=== PATIENT | female | born 1935 | race Caucasian/White ===

== ENCOUNTER 2021-01-11 11:51 | Inpatient (IN) | payer OTHER ==
[2021-01-11] MEDS ORDERED: ACETAMINOPHEN 500 MG TABLET (FP) PO ONE (13:09)
[2021-01-11] MEDS ORDERED: ACETAMINOPHEN INJECTION 100 ML IVPB ONE (13:19)
[2021-01-11] MEDS ORDERED: ACETAMINOPHEN 1000 MG/100 ML VIAL (NON FORMULARY) IVPB ONE (13:23)
[2021-01-11 13:49] LABS: BASO % 0.1 % (0-2.0); EOS % 0.3 % (0-4.5); HEMATOCRIT 41.1 % (32.4-45.2); LYMPH % 5.8 % (8-40); MCH 30.7 pg (25.7-33.7); MCHC 34.1 g/dl (32.0-36.0); MEAN CELL VOLUME 89.8 fl (80-96); MEAN PLT VOLUME 8.8 fl (7.5-11.1); MONO % 5.3 % (3.8-10.2); NEUT % 88.5 % (42.8-82.8); PLATELET COUNT 235 10^3/uL (134-434); RBC 4.58 M/mm3 (3.60-5.2); RDW 13.3 % (11.6-15.6); WHITE BLOOD COUNT 13.2 K/mm3 (4.0-10.0)
[2021-01-11 14:05] LABS: CHLORIDE 105 mmol/L (98-107); SODIUM 139 mmol/L (136-145)
[2021-01-11 14:08] LABS: ALBUMIN 3.8 g/dl (3.4-5.0); ANION GAP 9 MMOL/L (8-16); BLOOD UREA NITROGEN 12.4 mg/dL (7-18); CALCIUM 8.8 mg/dL (8.5-10.1); CO2 25 mmol/L (21-32); LIPASE 121 U/L (73-393)
[2021-01-11 14:09] LABS: GLUCOSE,RANDOM 176 mg/dL (74-106)
[2021-01-11 14:11] LABS: CREATININE 1.1 mg/dL (0.55-1.3); SGOT/AST 16 U/L (15-37); SGPT/ALT 22 U/L (13-61)
[2021-01-11 14:12] LABS: BILIRUBIN,TOTAL 0.5 mg/dL (0.2-1); LACTIC ACID 2.2 mmol/L (0.4-2.0); TOT PROT 7.3 g/dl (6.4-8.2)
[2021-01-11 14:14] LABS: ALK PHOS 98 U/L (45-117)
[2021-01-11] MEDS ORDERED: LACTATED RINGERS SOLUTION 1000 ML INFUS.BAG IV ONE (14:17)
[2021-01-11] MEDS ORDERED: ACETAMINOPHEN 325 MG TABLET (FP) PO PRN (17:52)
[2021-01-11] MEDS ORDERED: PANTOPRAZOLE 40 MG TABLET ONE (19:27)
[2021-01-11] MEDS: PANTOPRAZOLE 40 MG TABLET PO SCH (20:00)
[2021-01-11] MEDS: D5-1/2NS+10 MEQ KCL - 10 MEQ/1,000 ML INFUS.BAG IV SCH (21:45)
[2021-01-11 21:56] LABS: URINE APPEARANCE CLEAR; URINE BILIRUBIN NEGATIVE (NEGATIVE); URINE COLOR YELLOW; URINE GLUCOSE (UA) TRACE (NEGATIVE); URINE KETONE 1+ (NEGATIVE); URINE LEUK ESTERASE NEGATIVE (NEGATIVE); URINE NITRITE NEGATIVE (NEGATIVE); URINE PROTEIN NEGATIVE (NEGATIVE); URINE UROBILINOGEN 0.2 mg/dL (0.2-1.0)
[2021-01-12 08:11] LABS: BASO % 0.2 % (0-2.0); EOS % 0.2 % (0-4.5); HEMATOCRIT 39.3 % (32.4-45.2); LYMPH % 8.7 % (8-40); MCH 31.4 pg (25.7-33.7); MCHC 35.6 g/dl (32.0-36.0); MEAN CELL VOLUME 88.3 fl (80-96); MEAN PLT VOLUME 8.9 fl (7.5-11.1); MONO % 4.7 % (3.8-10.2); NEUT % 86.2 % (42.8-82.8); PLATELET COUNT 252 10^3/uL (134-434); RBC 4.46 M/mm3 (3.60-5.2); WHITE BLOOD COUNT 14.7 K/mm3 (4.0-10.0)
[2021-01-12 08:19] LABS: BLOOD UREA NITROGEN 6.8 mg/dL (7-18); CALCIUM 8.6 mg/dL (8.5-10.1)
[2021-01-12 08:23] LABS: CREATININE 0.7 mg/dL (0.55-1.3)
[2021-01-12] MEDS: ENOXAPARIN NA (PORCINE) 40 MG/0.4 ML DISP.SYRIN SQ SCH (10:37)
[2021-01-12] MEDS: PANTOPRAZOLE 40 MG TABLET PO SCH (10:37)
[2021-01-12] MEDS: KCL 10 MEQ IVPB 10 MEQ/100 ML INFUS.BAG IVPB SCH ×2 (10:37→14:01)
[2021-01-12] MEDS: POTASSIUM CHLORIDE TABS 20 MEQ TABLET.ER (FP) PO SCH ×2 (14:06→22:43)
[2021-01-12] MEDS: D5-1/2NS+10 MEQ KCL - 10 MEQ/1,000 ML INFUS.BAG IV SCH (18:45)
[2021-01-13] MEDS: D5-1/2NS+10 MEQ KCL - 10 MEQ/1,000 ML INFUS.BAG IV SCH (05:50)
[2021-01-13 09:26] LABS: BASO % 0.4 % (0-2.0); EOS % 0.6 % (0-4.5); HEMATOCRIT 37.4 % (32.4-45.2); HEMOGLOBIN 12.9 GM/dL (10.7-15.3); LYMPH % 12.2 % (8-40); MCH 30.5 pg (25.7-33.7); MCHC 34.4 g/dl (32.0-36.0); MEAN CELL VOLUME 88.7 fl (80-96); MONO % 4.7 % (3.8-10.2); NEUT % 82.1 % (42.8-82.8); PLATELET COUNT 219 10^3/uL (134-434); RBC 4.21 M/mm3 (3.60-5.2); RDW 13.3 % (11.6-15.6); WHITE BLOOD COUNT 12.7 K/mm3 (4.0-10.0)
[2021-01-13 09:47] LABS: BLOOD UREA NITROGEN 9.2 mg/dL (7-18); CALCIUM 8.3 mg/dL (8.5-10.1)
[2021-01-13 09:51] LABS: CREATININE 0.7 mg/dL (0.55-1.3)
[2021-01-13] MEDS: ENOXAPARIN NA (PORCINE) 40 MG/0.4 ML DISP.SYRIN SQ SCH (09:51)
[2021-01-13] MEDS: PANTOPRAZOLE 40 MG TABLET PO SCH (13:53)
[2021-01-13] MEDS: POTASSIUM CHLORIDE TABS 20 MEQ TABLET.ER (FP) PO SCH ×2 (13:53→21:49)
[2021-01-14 07:47] LABS: HEMATOCRIT 36.3 % (32.4-45.2); HEMOGLOBIN 12.5 GM/dL (10.7-15.3); MEAN CELL VOLUME 89.7 fl (80-96); RBC 4.04 M/mm3 (3.60-5.2); WHITE BLOOD COUNT 7.7 K/mm3 (4.0-10.0)
[2021-01-14 07:48] LABS: BASO % 0.6 % (0-2.0); EOS % 1.8 % (0-4.5); LYMPH % 19.5 % (8-40); MCH 30.9 pg (25.7-33.7); MCHC 34.4 g/dl (32.0-36.0); MONO % 6.8 % (3.8-10.2); NEUT % 71.3 % (42.8-82.8); PLATELET COUNT 210 10^3/uL (134-434); RDW 13.4 % (11.6-15.6)
[2021-01-14 08:06] LABS: BLOOD UREA NITROGEN 9.8 mg/dL (7-18); CREATININE 0.8 mg/dL (0.55-1.3)
[2021-01-14 08:07] LABS: CALCIUM 8.3 mg/dL (8.5-10.1)
[2021-01-14] MEDS: PANTOPRAZOLE 40 MG TABLET PO SCH (10:51)
[2021-01-14] MEDS: ENOXAPARIN NA (PORCINE) 40 MG/0.4 ML DISP.SYRIN SQ SCH (10:51)
[2021-01-14] MEDS ORDERED: ACETAMINOPHEN 325 MG TABLET (FP) PO PRN (14:47)
[2021-01-14] MEDS ORDERED: CEFTRIAXONE 1 GM in DEXTROSE 5%-WATER - 50 ML IVPB SCH (17:30)
[2021-01-14] MEDS ORDERED: cefTRIAXone SODIUM 1 GM VIAL ONE (21:02)
[2021-01-14] MEDS ORDERED: DEXTROSE 5%-WATER - 50 ML IVPB ONE (21:03)
[2021-01-14] MEDS: CEFTRIAXONE 1 GM in DEXTROSE 5%-WATER - 50 ML IVPB SCH (21:12)
[2021-01-15 08:23] LABS: BASO % 0.5 % (0-2.0); EOS % 2.2 % (0-4.5); HEMATOCRIT 39.1 % (32.4-45.2); HEMOGLOBIN 13.5 GM/dL (10.7-15.3); LYMPH % 15.6 % (8-40); MCHC 34.5 g/dl (32.0-36.0); MEAN CELL VOLUME 89.9 fl (80-96); MEAN PLT VOLUME 8.8 fl (7.5-11.1); MONO % 6.6 % (3.8-10.2); NEUT % 75.1 % (42.8-82.8); PLATELET COUNT 243 10^3/uL (134-434); RBC 4.35 M/mm3 (3.60-5.2); RDW 13.1 % (11.6-15.6); WHITE BLOOD COUNT 6.4 K/mm3 (4.0-10.0)
[2021-01-15] MEDS ORDERED: cefTRIAXone SODIUM 1 GM VIAL ONE (09:26)
[2021-01-15] MEDS ORDERED: DEXTROSE 5%-WATER - 50 ML IVPB ONE (09:26)
[2021-01-15] MEDS: ENOXAPARIN NA (PORCINE) 40 MG/0.4 ML DISP.SYRIN SQ SCH (09:31)
[2021-01-15] MEDS: PANTOPRAZOLE 40 MG TABLET PO SCH (09:31)
[2021-01-15] MEDS: CEFTRIAXONE 1 GM in DEXTROSE 5%-WATER - 50 ML IVPB SCH (09:32)
[2021-01-16 09:46] LABS: BASO % 0.8 % (0-2.0); EOS % 1.7 % (0-4.5); HEMATOCRIT 40.6 % (32.4-45.2); HEMOGLOBIN 14.1 GM/dL (10.7-15.3); LYMPH % 16.1 % (8-40); MCH 31.1 pg (25.7-33.7); MCHC 34.7 g/dl (32.0-36.0); MEAN CELL VOLUME 89.6 fl (80-96); MEAN PLT VOLUME 8.6 fl (7.5-11.1); MONO % 6.4 % (3.8-10.2); PLATELET COUNT 293 10^3/uL (134-434); RBC 4.53 M/mm3 (3.60-5.2); RDW 13.1 % (11.6-15.6); WHITE BLOOD COUNT 5.6 K/mm3 (4.0-10.0)
[2021-01-16] MEDS ORDERED: cefTRIAXone SODIUM 1 GM VIAL ONE (10:29)
[2021-01-16] MEDS: ENOXAPARIN NA (PORCINE) 40 MG/0.4 ML DISP.SYRIN SQ SCH (11:05)
[2021-01-16] MEDS: PANTOPRAZOLE 40 MG TABLET PO SCH (11:05)
[2021-01-16] MEDS: CEFTRIAXONE 1 GM in DEXTROSE 5%-WATER - 50 ML IVPB SCH (11:06)
[2021-01-16] MEDS ORDERED: LOSARTAN POTASSIUM 25 MG TABLET PO PRN (11:52)
[2021-01-17] MEDS ORDERED: MINERAL OIL ENEMA 133 ML ENEMA PR ONE (08:48)
[2021-01-17] MEDS ORDERED: cefTRIAXone SODIUM 1 GM VIAL ONE (09:24)
[2021-01-17] MEDS ORDERED: DEXTROSE 5%-WATER - 50 ML IVPB ONE (09:24)
[2021-01-17] MEDS: POLYETHYLENE GLYCOL (HEALTHYLAX) 3350 17 GM PACKET PO SCH ×3 (09:39→21:40)
[2021-01-17] MEDS: ENOXAPARIN NA (PORCINE) 40 MG/0.4 ML DISP.SYRIN SQ SCH (09:40)
[2021-01-17] MEDS: PANTOPRAZOLE 40 MG TABLET PO SCH (09:40)
[2021-01-17] MEDS: CEFTRIAXONE 1 GM in DEXTROSE 5%-WATER - 50 ML IVPB SCH (09:40)
[2021-01-17] MEDS ORDERED: POLYETHYLENE GLYCOL (HEALTHYLAX) 3350 17 GM PACKET PO SCH (10:00)
[2021-01-17] MEDS: DOCUSATE SODIUM 100 MG CAPSULE (FP) PO SCH ×2 (13:54→21:40)
[2021-01-18] MEDS: DOCUSATE SODIUM 100 MG CAPSULE (FP) PO SCH ×2 (06:14→14:48)
[2021-01-18] MEDS ORDERED: POLYETHYLENE GLYCOL (HEALTHYLAX) 3350 17 GM PACKET PO SCH (10:00)
[2021-01-18] MEDS ORDERED: cefTRIAXone SODIUM 1 GM VIAL ONE (10:04)
[2021-01-18] MEDS ORDERED: DEXTROSE 5%-WATER - 50 ML IVPB ONE (10:04)
[2021-01-18] MEDS: CEFTRIAXONE 1 GM in DEXTROSE 5%-WATER - 50 ML IVPB SCH (10:06)
[2021-01-18] MEDS: ENOXAPARIN NA (PORCINE) 40 MG/0.4 ML DISP.SYRIN SQ SCH (10:07)
[2021-01-18] MEDS: PANTOPRAZOLE 40 MG TABLET PO SCH (10:07)
[2021-01-18 11:53] VITALS: BMI 23.0
[2021-01-18] MEDS ORDERED: metroNIDAZOLE 250 MG TABLET PO SCH (14:00)
[2021-01-18 14:57] VITALS: BP 139/73; PULSE 84; TEMP 98.3
[2021-01-18] MEDS ORDERED: CEFUROXIME AXETIL 500 MG TABLET PO SCH (22:00)
[2021-01-19] MEDS ORDERED: MULTIVITAMINS (DAILY MVI) TABLET (FP) PO SCH (10:00)
[2021-01-19] MEDS ORDERED: LOSARTAN POTASSIUM 25 MG TABLET PO SCH (10:00)
== END 2021-01-18 18:07 | disposition home or self-care (01) | DRG 392 ==
LOC: JER 11:51 → JERBED 16:30 → OBSVTOIN 17:53 → J4W 01-12 01:56 → J6S 01-14 13:46
PROVIDERS: ADMIT Internal Medicine; ATTEND Internal Medicine
DX: K52.9 Noninfective gastroenteritis and colitis, unspecified (principal); E87.2 Acidosis; F03.90 Unspecified dementia, unspecified severity, without behavioral disturbance, psychotic disturbance, mood disturbance, and anxiety; E11.9 Type 2 diabetes mellitus without complications; I10 Essential (primary) hypertension; I25.10 Atherosclerotic heart disease of native coronary artery without angina pectoris; I25.2 Old myocardial infarction; R00.2 Palpitations; R26.81 Unsteadiness on feet; R10.30 Lower abdominal pain, unspecified; D72.829 Elevated white blood cell count, unspecified; R55 Syncope and collapse; F41.9 Anxiety disorder, unspecified; K57.30 Diverticulosis of large intestine without perforation or abscess without bleeding; M17.0 Bilateral primary osteoarthritis of knee; N28.1 Cyst of kidney, acquired; K59.00 Constipation, unspecified
CPT/HCPCS: 36415; 70450-TC; 71045-TC-FY; 71250-TC; 74177-TC; 80048; 80053; 81003; 83605; 83690; 84443; 84484; 85025; 85379; 85651; 86140; 87040; 87086; 87324; 87449; 93005; 93010; 93306-TC; 93880-TC; 93970-TC; 97116-GP; 97161-GP; 99285-25; C9803; G0378; J0131; Q9967; U0003; U0005

== ENCOUNTER 2021-08-15 20:09 | Inpatient (IN) | payer OTHER ==
[2021-08-15] MEDS ORDERED: ACETAMINOPHEN 1000 MG/100 ML BAG IVPB ONE (20:43)
[2021-08-15] MEDS ORDERED: METOCLOPRAMIDE HCL INJECTION 10 MG/2 ML VIAL IVPUSH ONE (20:43)
[2021-08-15] MEDS ORDERED: SODIUM CHLORIDE 0.9% 500 ML INFUS.BAG IV ONE (20:50)
[2021-08-15] MEDS ORDERED: METOCLOPRAMIDE HCL INJECTION 10 MG/2 ML VIAL ONE (20:51)
[2021-08-15] MEDS ORDERED: ACETAMINOPHEN INJECTION 100 ML IVPB ONE (20:51)
[2021-08-15 22:01] LABS: BASO % 0.4 % (0-2.0); EOS % 0.2 % (0-4.5); HEMATOCRIT 40.1 % (32.4-45.2); HEMOGLOBIN 13.6 GM/dL (10.7-15.3); LYMPH % 7.3 % (8-40); MEAN CELL VOLUME 88.3 fl (80-96); MEAN PLT VOLUME 9.3 fl (7.5-11.1); MONO % 2.5 % (3.8-10.2); NEUT % 89.6 % (42.8-82.8); PLATELET COUNT 254 10^3/uL (134-434); RBC 4.54 M/mm3 (3.60-5.2); RDW 12.9 % (11.6-15.6); WHITE BLOOD COUNT 9.5 K/mm3 (4.0-10.0)
[2021-08-15 22:20] LABS: CALCIUM 9.4 mg/dL (8.5-10.1)
[2021-08-15 22:21] LABS: BLOOD UREA NITROGEN 11.3 mg/dL (7-18); MAGNESIUM 2.2 mg/dL (1.8-2.4)
[2021-08-15 22:24] LABS: CREATININE 0.6 mg/dL (0.55-1.3)
[2021-08-15 22:25] LABS: TOT PROT 7.3 g/dl (6.4-8.2)
[2021-08-15] MEDS ORDERED: levETIRAcetam 500 MG/5 ML INJECTION VIAL IVPB ONE ×2 (22:25→22:43)
[2021-08-15 22:26] LABS: BILIRUBIN,TOTAL 0.5 mg/dL (0.2-1)
[2021-08-15] MEDS ORDERED: NICARDIPINE 25 MG in DEXTROSE 5%-WATER - 240 ML IVPB SCH (23:45)
[2021-08-16 00:10] LABS: INR 1.07 (0.83-1.09); PROTHROMBIN TIME (PATIENT) 12.3 SEC (9.7-13.0)
[2021-08-16 00:13] LABS: ACTIVATED PTT 29.7 SECONDS (25.2-36.5)
[2021-08-16] MEDS: INSULIN SLIDING SCALE (NOVOLOG) 1 VIAL SQ SCH ×4 (06:17→21:14)
[2021-08-16 07:25] LABS: BASO % 0.4 % (0-2.0); EOS % 1.3 % (0-4.5); HEMATOCRIT 37.1 % (32.4-45.2); HEMOGLOBIN 12.7 GM/dL (10.7-15.3); LYMPH % 21.9 % (8-40); MCH 30.2 pg (25.7-33.7); MCHC 34.2 g/dl (32.0-36.0); MEAN CELL VOLUME 88.5 fl (80-96); MEAN PLT VOLUME 8.8 fl (7.5-11.1); NEUT % 70.4 % (42.8-82.8); PLATELET COUNT 243 10^3/uL (134-434); RBC 4.19 M/mm3 (3.60-5.2); RDW 12.9 % (11.6-15.6)
[2021-08-16 07:40] LABS: BLOOD UREA NITROGEN 10.8 mg/dL (7-18); MAGNESIUM 2.1 mg/dL (1.8-2.4)
[2021-08-16 07:43] LABS: CREATININE 0.7 mg/dL (0.55-1.3); PHOSPHOROUS 4.1 mg/dL (2.5-4.9)
[2021-08-16] MEDS ORDERED: FLU VACC QS2021-22(6MOS UP)/PF 60 MCG/0.5 ML SYRINGE IM ONE (09:00)
[2021-08-16] MEDS: HYDROCHLOROTHIAZIDE 12.5 MG CAPSULE (FP) PO SCH (09:46)
[2021-08-16] MEDS: MUPIROCIN 2% TOPICAL OINTMENT FOR DECOLONIZATION NS SCH ×2 (09:48→21:29)
[2021-08-16] MEDS ORDERED: levETIRAcetam 500 MG/5 ML INJECTION VIAL IVPB SCH (10:00)
[2021-08-16] MEDS: VALSARTAN 80 MG TABLET PO SCH (10:22)
[2021-08-16] MEDS ORDERED: TRIMETHOBENZAMIDE HCL 300 MG CAPSULE PO ONE (14:09)
[2021-08-16] MEDS ORDERED: ACETAMINOPHEN 325 MG TABLET (FP) PO ONE (21:14)
[2021-08-16] MEDS: levETIRAcetam 250 MG TABLET PO SCH (21:27)
[2021-08-16] MEDS ORDERED: CHLORHEXIDINE GLUCONATE 4% CLEANSER FOR DECOLONIZATION TP SCH (22:00)
[2021-08-17] MEDS: INSULIN SLIDING SCALE (NOVOLOG) 1 VIAL SQ SCH ×4 (07:22→22:04)
[2021-08-17] MEDS: levETIRAcetam 250 MG TABLET PO SCH ×2 (09:12→22:22)
[2021-08-17] MEDS: VALSARTAN 80 MG TABLET PO SCH (09:12)
[2021-08-17] MEDS: HYDROCHLOROTHIAZIDE 12.5 MG CAPSULE (FP) PO SCH (09:12)
[2021-08-17] MEDS: MUPIROCIN 2% TOPICAL OINTMENT FOR DECOLONIZATION NS SCH (10:49)
[2021-08-17] MEDS: DONEPEZIL HCL 10 MG TABLET (FP) PO SCH (15:06)
[2021-08-17] MEDS: MIRTAZAPINE 30 MG TABLET PO SCH (15:07)
[2021-08-17] MEDS ORDERED: MELATONIN 5 MG TABLETS PO PRN (18:22)
[2021-08-17] MEDS: ACETAMINOPHEN 325 MG TABLET (FP) PO PRN (18:56)
[2021-08-17] MEDS ORDERED: CHLORHEXIDINE GLUCONATE 4% CLEANSER FOR DECOLONIZATION TP SCH (22:00)
[2021-08-17] MEDS ORDERED: MUPIROCIN 2% TOPICAL OINTMENT FOR DECOLONIZATION NS SCH (22:00)
[2021-08-17] MEDS: ATORVASTATIN CA 10 MG TABLET (FP) PO SCH (22:05)
[2021-08-18] MEDS: INSULIN SLIDING SCALE (NOVOLOG) 1 VIAL SQ SCH ×4 (06:03→22:01)
[2021-08-18] MEDS ORDERED: MIRTAZAPINE 15 MG TABLET (FP) ONE (09:45)
[2021-08-18] MEDS: DONEPEZIL HCL 10 MG TABLET (FP) PO SCH (09:50)
[2021-08-18] MEDS: levETIRAcetam 250 MG TABLET PO SCH (09:50)
[2021-08-18] MEDS: HYDROCHLOROTHIAZIDE 12.5 MG CAPSULE (FP) PO SCH (09:50)
[2021-08-18] MEDS: MIRTAZAPINE 30 MG TABLET PO SCH (09:51)
[2021-08-18] MEDS: VALSARTAN 80 MG TABLET PO SCH (09:51)
[2021-08-18] MEDS: ATORVASTATIN CA 10 MG TABLET (FP) PO SCH (22:01)
[2021-08-18] MEDS ORDERED: levETIRAcetam 500 MG TABLET (FP) PO SCH (22:40)
[2021-08-18] MEDS: levETIRAcetam 500 MG TABLET (FP) PO SCH (23:50)
[2021-08-19] MEDS: ACETAMINOPHEN 325 MG TABLET (FP) PO PRN ×2 (01:18→09:30)
[2021-08-19] MEDS: INSULIN SLIDING SCALE (NOVOLOG) 1 VIAL SQ SCH ×4 (07:09→21:49)
[2021-08-19] MEDS ORDERED: MIRTAZAPINE 15 MG TABLET (FP) ONE (08:57)
[2021-08-19] MEDS: levETIRAcetam 500 MG TABLET (FP) PO SCH ×2 (09:28→21:46)
[2021-08-19] MEDS: HYDROCHLOROTHIAZIDE 12.5 MG CAPSULE (FP) PO SCH (09:30)
[2021-08-19] MEDS: MIRTAZAPINE 30 MG TABLET PO SCH (09:30)
[2021-08-19] MEDS: DONEPEZIL HCL 10 MG TABLET (FP) PO SCH (09:30)
[2021-08-19] MEDS: VALSARTAN 80 MG TABLET PO SCH (09:30)
[2021-08-19] MEDS: ATORVASTATIN CA 10 MG TABLET (FP) PO SCH (21:46)
[2021-08-20] MEDS: INSULIN SLIDING SCALE (NOVOLOG) 1 VIAL SQ SCH ×4 (06:00→21:36)
[2021-08-20 07:22] LABS: BASO % 0.3 % (0-2.0); EOS % 2.5 % (0-4.5); HEMATOCRIT 37.8 % (32.4-45.2); HEMOGLOBIN 13.4 GM/dL (10.7-15.3); LYMPH % 20.8 % (8-40); MCH 31.2 pg (25.7-33.7); MCHC 35.4 g/dl (32.0-36.0); MEAN CELL VOLUME 88.3 fl (80-96); MEAN PLT VOLUME 8.6 fl (7.5-11.1); MONO % 7.3 % (3.8-10.2); NEUT % 69.1 % (42.8-82.8); PLATELET COUNT 235 10^3/uL (134-434); RBC 4.28 M/mm3 (3.60-5.2); RDW 13.1 % (11.6-15.6); WHITE BLOOD COUNT 6.9 K/mm3 (4.0-10.0)
[2021-08-20 07:50] LABS: ALBUMIN 3.5 g/dl (3.4-5.0)
[2021-08-20 07:52] LABS: CREATININE 0.7 mg/dL (0.55-1.3)
[2021-08-20 07:54] LABS: BILIRUBIN,TOTAL 0.4 mg/dL (0.2-1); TOT PROT 6.6 g/dl (6.4-8.2)
[2021-08-20] MEDS ORDERED: MIRTAZAPINE 15 MG TABLET (FP) ONE (09:36)
[2021-08-20] MEDS: HYDROCHLOROTHIAZIDE 12.5 MG CAPSULE (FP) PO SCH (10:27)
[2021-08-20] MEDS: levETIRAcetam 500 MG TABLET (FP) PO SCH ×2 (10:27→21:34)
[2021-08-20] MEDS: VALSARTAN 80 MG TABLET PO SCH (10:27)
[2021-08-20] MEDS: MIRTAZAPINE 30 MG TABLET PO SCH (10:27)
[2021-08-20] MEDS: DONEPEZIL HCL 10 MG TABLET (FP) PO SCH (10:27)
[2021-08-20 15:21] VITALS: BMI 20.2
[2021-08-20] MEDS: ATORVASTATIN CA 10 MG TABLET (FP) PO SCH (21:34)
[2021-08-21] MEDS: ACETAMINOPHEN 325 MG TABLET (FP) PO PRN (01:39)
[2021-08-21] MEDS: INSULIN SLIDING SCALE (NOVOLOG) 1 VIAL SQ SCH ×4 (06:05→21:18)
[2021-08-21] MEDS ORDERED: MIRTAZAPINE 15 MG TABLET (FP) ONE (09:01)
[2021-08-21] MEDS: MIRTAZAPINE 30 MG TABLET PO SCH (09:21)
[2021-08-21] MEDS: VALSARTAN 80 MG TABLET PO SCH (09:21)
[2021-08-21] MEDS: levETIRAcetam 500 MG TABLET (FP) PO SCH ×2 (09:21→21:18)
[2021-08-21] MEDS: DONEPEZIL HCL 10 MG TABLET (FP) PO SCH (09:21)
[2021-08-21] MEDS: HYDROCHLOROTHIAZIDE 12.5 MG CAPSULE (FP) PO SCH (09:21)
[2021-08-21] MEDS: PANTOPRAZOLE 40 MG TABLET PO SCH (09:28)
[2021-08-21] MEDS: ATORVASTATIN CA 10 MG TABLET (FP) PO SCH (21:18)
[2021-08-22] MEDS: INSULIN SLIDING SCALE (NOVOLOG) 1 VIAL SQ SCH ×4 (06:05→21:05)
[2021-08-22] MEDS ORDERED: MIRTAZAPINE 15 MG TABLET (FP) ONE (09:38)
[2021-08-22] MEDS: DONEPEZIL HCL 10 MG TABLET (FP) PO SCH (09:46)
[2021-08-22] MEDS: PANTOPRAZOLE 40 MG TABLET PO SCH (09:46)
[2021-08-22] MEDS: VALSARTAN 80 MG TABLET PO SCH (09:46)
[2021-08-22] MEDS: HYDROCHLOROTHIAZIDE 12.5 MG CAPSULE (FP) PO SCH (09:46)
[2021-08-22] MEDS: levETIRAcetam 500 MG TABLET (FP) PO SCH ×2 (09:46→21:04)
[2021-08-22] MEDS: MIRTAZAPINE 30 MG TABLET PO SCH (09:48)
[2021-08-22] MEDS: ATORVASTATIN CA 10 MG TABLET (FP) PO SCH (21:04)
[2021-08-23] MEDS: INSULIN SLIDING SCALE (NOVOLOG) 1 VIAL SQ SCH ×2 (07:09→11:00)
[2021-08-23] MEDS ORDERED: MIRTAZAPINE 15 MG TABLET (FP) ONE (08:34)
[2021-08-23] MEDS: PANTOPRAZOLE 40 MG TABLET PO SCH (09:01)
[2021-08-23] MEDS: HYDROCHLOROTHIAZIDE 12.5 MG CAPSULE (FP) PO SCH (09:01)
[2021-08-23] MEDS: VALSARTAN 80 MG TABLET PO SCH (09:01)
[2021-08-23] MEDS: DONEPEZIL HCL 10 MG TABLET (FP) PO SCH (09:01)
[2021-08-23] MEDS: levETIRAcetam 500 MG TABLET (FP) PO SCH (09:02)
[2021-08-23] MEDS: MIRTAZAPINE 30 MG TABLET PO SCH (09:02)
[2021-08-23 14:10] VITALS: BP 136/71; PULSE 89; TEMP 98
== END 2021-08-23 15:23 | disposition home health service (06) | DRG 64 ==
LOC: JER 20:09 → JERBED 22:29 → JICU 08-16 00:47 → J4W 08-17 13:19
PROVIDERS: ADMIT Internal Medicine Pulmonary Disease; ATTEND Internal Medicine
DX: I60.8 Other nontraumatic subarachnoid hemorrhage (principal); G93.6 Cerebral edema; E11.9 Type 2 diabetes mellitus without complications; I10 Essential (primary) hypertension; I25.10 Atherosclerotic heart disease of native coronary artery without angina pectoris; I25.2 Old myocardial infarction; F03.90 Unspecified dementia, unspecified severity, without behavioral disturbance, psychotic disturbance, mood disturbance, and anxiety; R00.0 Tachycardia, unspecified; R29.810 Facial weakness; E78.5 Hyperlipidemia, unspecified; F41.9 Anxiety disorder, unspecified; R11.2 Nausea with vomiting, unspecified; R51.9 Headache, unspecified; R26.81 Unsteadiness on feet; K57.30 Diverticulosis of large intestine without perforation or abscess without bleeding; N28.1 Cyst of kidney, acquired; M62.81 Muscle weakness (generalized); D72.829 Elevated white blood cell count, unspecified
CPT/HCPCS: 0241U-QW; 36415; 70450-TC; 70496-TC; 74177-TC; 80048; 80053; 82962; 83735; 84100; 84484; 85025; 85610; 85730; 87807; 93005; 93010; 97116-GP; 97162-GP; 99285-25; C9803-CS; U0003; U0005

== ENCOUNTER 2022-02-06 17:35 | Observation (INO) | payer OTHER ==
[2022-02-06 18:33] LABS: BASO % 0.3 % (0-2.0); EOS % 1.6 % (0-4.5); HEMATOCRIT 35.5 % (32.4-45.2); HEMOGLOBIN 12.3 GM/dL (10.7-15.3); LYMPH % 23.1 % (8-40); MCH 31.3 pg (25.7-33.7); MCHC 34.7 g/dl (32.0-36.0); MEAN CELL VOLUME 90.4 fl (80-96); MEAN PLT VOLUME 7.9 fl (7.5-11.1); MONO % 8.4 % (3.8-10.2); NEUT % 66.6 % (42.8-82.8); PLATELET COUNT 240 10^3/uL (134-434); RBC 3.92 M/mm3 (3.60-5.2); RDW 13.3 % (11.6-15.6); WHITE BLOOD COUNT 6.5 K/mm3 (4.0-10.0)
[2022-02-06 18:53] LABS: EPI CELLS 19 /uL (0-25.1); HYALINE CASTS 1 /uL (0-3.1); URINE APPEARANCE CLEAR; URINE BACTERIA 43 /uL (0-1359); URINE BILIRUBIN NEGATIVE (NEGATIVE); URINE COLOR YELLOW; URINE GLUCOSE (UA) NEGATIVE (NEGATIVE); URINE KETONE NEGATIVE (NEGATIVE); URINE LEUK ESTERASE 2+ (NEGATIVE); URINE NITRITE NEGATIVE (NEGATIVE); URINE PROTEIN NEGATIVE (NEGATIVE); URINE RBC 84 /uL (0-23.9); URINE WBC 94 /uL (0-25.8)
[2022-02-06 18:59] LABS: CALCIUM 8.8 mg/dL (8.5-10.1)
[2022-02-06 19:00] LABS: ALBUMIN 3.5 g/dl (3.4-5.0); BLOOD UREA NITROGEN 17.2 mg/dL (7-18); MAGNESIUM 2.3 mg/dL (1.8-2.4)
[2022-02-06 19:03] LABS: CREATININE 0.8 mg/dL (0.55-1.3); PHOSPHOROUS 3.2 mg/dL (2.5-4.9)
[2022-02-06 19:04] LABS: BILIRUBIN,TOTAL 0.2 mg/dL (0.2-1); TOT PROT 6.6 g/dl (6.4-8.2)
[2022-02-06] MEDS ORDERED: CEFTRIAXONE 1 GM in DEXTROSE 5%-WATER - 100 ML IVPB ONE (19:05)
[2022-02-06] MEDS ORDERED: CEFTRIAXONE 1 GM/50 ML BAG ONE (20:07)
[2022-02-07 04:06] VITALS: BMI 21.6
[2022-02-07] MEDS ORDERED: MELATONIN 5 MG TABLETS PO PRN (06:56)
[2022-02-07] MEDS: CEFTRIAXONE 1 GM in DEXTROSE 5%-WATER - 50 ML IVPB SCH (10:31)
[2022-02-07] MEDS: DONEPEZIL HCL 10 MG TABLET (FP) PO SCH (10:31)
[2022-02-07 11:24] LABS: BASO % 0.5 % (0-2.0); EOS % 1.4 % (0-4.5); HEMOGLOBIN 12.9 GM/dL (10.7-15.3); LYMPH % 16.4 % (8-40); MCH 30.4 pg (25.7-33.7); MCHC 33.1 g/dl (32.0-36.0); MEAN CELL VOLUME 91.8 fl (80-96); MEAN PLT VOLUME 8.9 fl (7.5-11.1); MONO % 5.3 % (3.8-10.2); NEUT % 76.4 % (42.8-82.8); PLATELET COUNT 257 10^3/uL (134-434); RBC 4.25 M/mm3 (3.60-5.2); RDW 13.1 % (11.6-15.6); WHITE BLOOD COUNT 5.2 K/mm3 (4.0-10.0)
[2022-02-07 11:43] LABS: CALCIUM 9.3 mg/dL (8.5-10.1)
[2022-02-07 11:45] LABS: CREATININE 0.7 mg/dL (0.55-1.3)
[2022-02-07] MEDS ORDERED: SODIUM CHLORIDE 1,000 ML IV SCH (13:00)
[2022-02-07] MEDS ORDERED: levETIRAcetam 500 MG TABLET (FP) PO SCH ×2 (14:31→22:00)
[2022-02-07] MEDS ORDERED: levETIRAcetam 250 MG TABLET PO ONE (14:33)
[2022-02-07] MEDS: ATORVASTATIN CA 10 MG TABLET (FP) PO SCH (21:34)
[2022-02-07] MEDS: levETIRAcetam 250 MG TABLET PO SCH (21:34)
[2022-02-07] MEDS: INSULIN SLIDING SCALE (NOVOLOG) 1 VIAL SQ SCH (21:34)
[2022-02-08] MEDS: INSULIN SLIDING SCALE (NOVOLOG) 1 VIAL SQ SCH ×4 (06:02→21:43)
[2022-02-08 08:50] LABS: BASO % 0.6 % (0-2.0); EOS % 1.4 % (0-4.5); HEMATOCRIT 35.9 % (32.4-45.2); HEMOGLOBIN 12.6 GM/dL (10.7-15.3); LYMPH % 22.1 % (8-40); MCH 31.9 pg (25.7-33.7); MCHC 35.1 g/dl (32.0-36.0); MEAN CELL VOLUME 90.7 fl (80-96); MEAN PLT VOLUME 8.6 fl (7.5-11.1); MONO % 6.7 % (3.8-10.2); NEUT % 69.2 % (42.8-82.8); PLATELET COUNT 228 10^3/uL (134-434); RBC 3.96 M/mm3 (3.60-5.2); RDW 13.3 % (11.6-15.6); WHITE BLOOD COUNT 5.3 K/mm3 (4.0-10.0)
[2022-02-08 09:18] LABS: CALCIUM 8.8 mg/dL (8.5-10.1)
[2022-02-08 09:19] LABS: ALBUMIN 3.4 g/dl (3.4-5.0); BLOOD UREA NITROGEN 11.6 mg/dL (7-18); MAGNESIUM 2.1 mg/dL (1.8-2.4)
[2022-02-08 09:22] LABS: CREATININE 0.7 mg/dL (0.55-1.3)
[2022-02-08 09:23] LABS: BILIRUBIN,TOTAL 0.5 mg/dL (0.2-1); TOT PROT 6.3 g/dl (6.4-8.2)
[2022-02-08] MEDS: CEFTRIAXONE 1 GM in DEXTROSE 5%-WATER - 50 ML IVPB SCH (09:52)
[2022-02-08] MEDS: VALSARTAN 80 MG TABLET PO SCH (09:53)
[2022-02-08] MEDS: MIRTAZAPINE 30 MG TABLET PO SCH (09:53)
[2022-02-08] MEDS: ENOXAPARIN NA (PORCINE) 30 MG/0.3 ML DISP.SYRIN SQ SCH (09:53)
[2022-02-08] MEDS: MEMANTINE HCL 5 MG TABLET (UD) PO SCH ×2 (09:54→21:43)
[2022-02-08] MEDS: levETIRAcetam 250 MG TABLET PO SCH ×2 (09:54→21:43)
[2022-02-08] MEDS: DONEPEZIL HCL 10 MG TABLET (FP) PO SCH (09:54)
[2022-02-08] MEDS: ATORVASTATIN CA 10 MG TABLET (FP) PO SCH (21:43)
[2022-02-08] MEDS: CEFUROXIME AXETIL 500 MG TABLET PO SCH (21:43)
[2022-02-09] MEDS: INSULIN SLIDING SCALE (NOVOLOG) 1 VIAL SQ SCH ×4 (06:13→22:12)
[2022-02-09 10:29] LABS: BASO % 0.5 % (0-2.0); EOS % 1.6 % (0-4.5); HEMATOCRIT 37.2 % (32.4-45.2); LYMPH % 16.7 % (8-40); MCH 31.3 pg (25.7-33.7); MCHC 34.9 g/dl (32.0-36.0); MEAN CELL VOLUME 89.8 fl (80-96); MEAN PLT VOLUME 8.4 fl (7.5-11.1); MONO % 7.6 % (3.8-10.2); NEUT % 73.6 % (42.8-82.8); PLATELET COUNT 232 10^3/uL (134-434); RBC 4.14 M/mm3 (3.60-5.2); WHITE BLOOD COUNT 5.2 K/mm3 (4.0-10.0)
[2022-02-09] MEDS ORDERED: MIRTAZAPINE 15 MG TABLET (FP) ONE (10:35)
[2022-02-09] MEDS: DONEPEZIL HCL 10 MG TABLET (FP) PO SCH (10:50)
[2022-02-09] MEDS: MEMANTINE HCL 5 MG TABLET (UD) PO SCH ×2 (10:50→21:41)
[2022-02-09] MEDS: CEFUROXIME AXETIL 500 MG TABLET PO SCH ×2 (10:50→21:41)
[2022-02-09] MEDS: levETIRAcetam 250 MG TABLET PO SCH ×2 (10:50→21:41)
[2022-02-09 10:51] LABS: CALCIUM 9.1 mg/dL (8.5-10.1)
[2022-02-09] MEDS: ENOXAPARIN NA (PORCINE) 30 MG/0.3 ML DISP.SYRIN SQ SCH (10:51)
[2022-02-09] MEDS: VALSARTAN 80 MG TABLET PO SCH (10:51)
[2022-02-09 10:52] LABS: ALBUMIN 3.4 g/dl (3.4-5.0); BLOOD UREA NITROGEN 8.6 mg/dL (7-18); MAGNESIUM 2.3 mg/dL (1.8-2.4)
[2022-02-09] MEDS: MIRTAZAPINE 30 MG TABLET PO SCH (10:52)
[2022-02-09 10:55] LABS: CREATININE 0.6 mg/dL (0.55-1.3)
[2022-02-09 10:57] LABS: BILIRUBIN,TOTAL 0.3 mg/dL (0.2-1); TOT PROT 6.5 g/dl (6.4-8.2)
[2022-02-09] MEDS ORDERED: POTASSIUM CHLORIDE TABS 20 MEQ TABLET.ER (FP) PO ONE (12:20)
[2022-02-09] MEDS ORDERED: ACETAMINOPHEN 325 MG TABLET (FP) PO PRN (15:20)
[2022-02-09] MEDS: ATORVASTATIN CA 10 MG TABLET (FP) PO SCH (21:41)
[2022-02-10] MEDS: INSULIN SLIDING SCALE (NOVOLOG) 1 VIAL SQ SCH ×2 (06:57→12:00)
[2022-02-10] MEDS ORDERED: SODIUM CHLORIDE 1,000 ML IV SCH (10:00)
[2022-02-10 10:30] LABS: HEMATOCRIT 38.8 % (32.4-45.2); HEMOGLOBIN 13.3 GM/dL (10.7-15.3); MCH 31.2 pg (25.7-33.7); MCHC 34.3 g/dl (32.0-36.0); MEAN PLT VOLUME 8.7 fl (7.5-11.1); PLATELET COUNT 252 10^3/uL (134-434); RBC 4.26 M/mm3 (3.60-5.2); RDW 12.8 % (11.6-15.6); WHITE BLOOD COUNT 14.9 K/mm3 (4.0-10.0)
[2022-02-10] MEDS ORDERED: levETIRAcetam 500 MG/5 ML INJECTION VIAL IVPB ONE (10:37)
[2022-02-10 10:50] LABS: CALCIUM 9.2 mg/dL (8.5-10.1)
[2022-02-10 10:51] LABS: ALBUMIN 3.7 g/dl (3.4-5.0); MAGNESIUM 2.2 mg/dL (1.8-2.4)
[2022-02-10] MEDS: DONEPEZIL HCL 10 MG TABLET (FP) PO SCH (10:51)
[2022-02-10] MEDS: ENOXAPARIN NA (PORCINE) 30 MG/0.3 ML DISP.SYRIN SQ SCH (10:52)
[2022-02-10] MEDS: levETIRAcetam 250 MG TABLET PO SCH (10:52)
[2022-02-10] MEDS: MEMANTINE HCL 5 MG TABLET (UD) PO SCH (10:52)
[2022-02-10] MEDS: VALSARTAN 80 MG TABLET PO SCH (10:52)
[2022-02-10] MEDS: CEFUROXIME AXETIL 500 MG TABLET PO SCH (10:52)
[2022-02-10 10:53] LABS: CREATININE 0.6 mg/dL (0.55-1.3)
[2022-02-10] MEDS: MIRTAZAPINE 30 MG TABLET PO SCH (10:53)
[2022-02-10 10:54] LABS: BILIRUBIN,TOTAL 0.5 mg/dL (0.2-1); TOT PROT 7.1 g/dl (6.4-8.2)
[2022-02-10 11:29] LABS: ANISOCYTOSIS 0; HELMET CELLS 0; HOWELL-JOLLY BODIES 0; MACROCYTOSIS 0; OVALOCYTE 0; ROULEAU 0; SICKELED CELLS 0; TARGET CELLS 0; TEAR DROP CELLS 0; TOXIC GRANULATION 0
[2022-02-10 11:41] VITALS: TEMP 98
[2022-02-10] MEDS ORDERED: hydrALAZINE HCL 20 MG/ML VIAL IVPUSH PRN (13:10)
[2022-02-10 13:40] LABS: HEMATOCRIT 43.8 % (32.4-45.2); HEMOGLOBIN 14.3 GM/dL (10.7-15.3); MCH 29.9 pg (25.7-33.7); MCHC 32.7 g/dl (32.0-36.0); MEAN CELL VOLUME 91.4 fl (80-96); MEAN PLT VOLUME 9.5 fl (7.5-11.1); PLATELET COUNT 260 10^3/uL (134-434); RBC 4.79 M/mm3 (3.60-5.2); WHITE BLOOD COUNT 17.8 K/mm3 (4.0-10.0)
[2022-02-10 13:57] LABS: CALCIUM 9.2 mg/dL (8.5-10.1)
[2022-02-10 13:58] LABS: ALBUMIN 4.1 g/dl (3.4-5.0)
[2022-02-10 13:59] LABS: BLOOD UREA NITROGEN 11.4 mg/dL (7-18)
[2022-02-10 14:00] LABS: ACTIVATED PTT 29.1 SECONDS (25.2-36.5); INR 1.09 (0.83-1.09); PROTHROMBIN TIME (PATIENT) 12.5 SEC (9.7-13.0)
[2022-02-10] MEDS ORDERED: NICARDIPINE 25 MG in DEXTROSE 5%-WATER - 240 ML IVPB SCH (14:00)
[2022-02-10 14:01] LABS: CREATININE 0.6 mg/dL (0.55-1.3)
[2022-02-10 14:03] LABS: TOT PROT 7.6 g/dl (6.4-8.2)
[2022-02-10 14:04] VITALS: BP 173/63; PULSE 91; RESP 22
[2022-02-10 14:04] LABS: BILIRUBIN,TOTAL 0.6 mg/dL (0.2-1)
[2022-02-10 14:13] LABS: ANISOCYTOSIS 0; HELMET CELLS 0; HOWELL-JOLLY BODIES 0; MACROCYTOSIS 0; OVALOCYTE 0; ROULEAU 0; SICKELED CELLS 0; TARGET CELLS 0; TEAR DROP CELLS 0; TOXIC GRANULATION 0
== END 2022-02-10 14:00 | disposition short-term general hospital (02) ==
LOC: JER 17:35 → UNDOADMOB 18:09 → INTOOBSV 18:09 → JERBED 18:09 → J5S 21:46 → JERBED 02-07 08:54 → J5S 02-07 08:54 → JICU 02-10 11:13
PROVIDERS: ADMIT Internal Medicine; ATTEND Nurse Practitioner Family
PROC: 3E03329 Introduction of Other Anti-infective into Peripheral Vein, Percutaneous Approach (ICD-10-PCS; principal; 2022-02-07)
PROC: 3E013VG Introduction of Insulin into Subcutaneous Tissue, Percutaneous Approach (ICD-10-PCS; 2022-02-07)
PROC: 3E033GC Introduction of Other Therapeutic Substance into Peripheral Vein, Percutaneous Approach (ICD-10-PCS; 2022-02-07)
PROC: 3E0337Z Introduction of Electrolytic and Water Balance Substance into Peripheral Vein, Percutaneous Approach (ICD-10-PCS; 2022-02-07)
DX: I61.9 Nontraumatic intracerebral hemorrhage, unspecified (principal); I11.9 Hypertensive heart disease without heart failure; E11.9 Type 2 diabetes mellitus without complications; I25.10 Atherosclerotic heart disease of native coronary artery without angina pectoris; I25.2 Old myocardial infarction; F03.90 Unspecified dementia, unspecified severity, without behavioral disturbance, psychotic disturbance, mood disturbance, and anxiety; M19.90 Unspecified osteoarthritis, unspecified site; F41.9 Anxiety disorder, unspecified; R41.0 Disorientation, unspecified; N28.1 Cyst of kidney, acquired; Z20.822 Contact with and (suspected) exposure to COVID-19; Z29.8 Encounter for other specified prophylactic measures; N39.0 Urinary tract infection, site not specified
CPT/HCPCS: 36415; 70450-TC; 71046-TC-FY; 80048; 80053; 80061; 80177; 81003; 82550; 82962; 83605; 83735; 84100; 84443; 84484; 85025; 85610; 85730; 86850; 86900; 86901; 87086; 87186; 93005; 93010; 96361; 96365; 96366; 96372; 96375; 97116-GP; 97162-GP; 99285-25; C9803-CS; G0378; U0003; U0005